=== PATIENT | female | born 1985 | race African-American/Black ===

== ENCOUNTER 2016-10-27 04:42 | Emergency (ER) | payer SELFPAY | END 2016-10-27 04:54 | disposition home or self-care (01) | LOC: ER 04:42 | DX: S16.1XXA Strain of muscle, fascia and tendon at neck level, initial encounter (principal); S39.012A Strain of muscle, fascia and tendon of lower back, initial encounter; F17.200 Nicotine dependence, unspecified, uncomplicated; V43.62XA Car passenger injured in collision with other type car in traffic accident, initial encounter; Y92.410 Unspecified street and highway as the place of occurrence of the external cause | CPT/HCPCS: 72100; 72125; 84703; 99285 ==